=== PATIENT | female | born 1975 | race Caucasian/White ===

== ENCOUNTER 2017-10-21 13:57 | Emergency (ER) | payer MEDICAID ==
[~2017-10-21] VITALS: Ht 170.2 cm; Wt 170.1 kg
[2017-10-21 13:57] VITALS: BP_SYST 133
[~2017-10-21 13:57] MED LIST: SUMA25TA PO
[2017-10-21] MEDS ORDERED: ONDANSETRON 4 MG ODT TAB PO ONE (14:15)
[2017-10-21] MEDS ORDERED: fentaNYL CITRATE/PF 100 MCG/2 ML AMP IM ONE (14:15)
[2017-10-21] MEDS ORDERED: KETAMINE HCL 500 MG/10 ML VIAL IVP ONE (14:45)
[2017-10-21] MEDS ORDERED: KETAMINE HCL 50 MG/ML SYR ONE (14:56)
[2017-10-21 16:00] VITALS: BP_SYST 156
== END 2017-10-21 16:00 | disposition home or self-care (01) ==
LOC: SED 13:57
DX: M54.5 Low back pain (principal); J44.9 Chronic obstructive pulmonary disease, unspecified; I10 Essential (primary) hypertension; E66.9 Obesity, unspecified; Z68.43 Body mass index [BMI] 50.0-59.9, adult
CPT/HCPCS: 96372; 96374; 99284; J3010; Q0162

== ENCOUNTER 2018-01-29 09:07 | Emergency (ER) | payer MEDICAID ==
[~2018-01-29] VITALS: Ht 170.2 cm; Wt 171.0 kg
--- NOTE | 2018-01-29 09:10 | NUR ---
Patient to ER bed 6 to gown for evaluation. Side rails up. Report given to Teodoro JUAN.
--- NOTE | 2018-01-29 09:10 | NUR ---
Patient ambulatory to ED a/o x 4 with c/o lower back pain x 1 month. Worsening pain with muscle spasms occuring over last two weeks. No deformities. Reports injury back stepping down from ledge. CMS intact to lower extremities.
[2018-01-29 09:13] VITALS: BP_SYST 138
--- NOTE | 2018-01-29 09:19 | NUR ---
ED Dillan at bedside for medical evaluation.
[2018-01-29] MEDS ORDERED: KETOROLAC TROMETHAMINE 60 MG/2 ML VIAL IM ONE (09:30)
[2018-01-29 09:50] VITALS: BP_SYST 138
--- NOTE | 2018-01-29 09:50 | NUR ---
Patient given written and verbal discharge instructions and verbalizes understanding. ER MD discussed with patient the results and treatment provided. Patient in stable condition. ID arm band removed. Rx of Flexeril given. Patient educated on pain management and to follow up with PMD. Pain Scale 3/10. Opportunity for questions provided and answered. Medication side effect fact sheet provided.
== END 2018-01-29 09:50 | disposition home or self-care (01) ==
LOC: SED 09:07
DX: S39.012A Strain of muscle, fascia and tendon of lower back, initial encounter (principal); E66.01 Morbid (severe) obesity due to excess calories; J44.9 Chronic obstructive pulmonary disease, unspecified; I10 Essential (primary) hypertension; Z68.43 Body mass index [BMI] 50.0-59.9, adult; X50.9XXA Other and unspecified overexertion or strenuous movements or postures, initial encounter; Y93.89 Activity, other specified; Y92.89 Other specified places as the place of occurrence of the external cause; Y99.8 Other external cause status
CPT/HCPCS: 96372; 99283; J1885

== ENCOUNTER 2018-03-17 08:56 | Emergency (ER) | payer MEDICAID ==
[~2018-03-17] VITALS: Ht 170.2 cm; Wt 167.8 kg
[2018-03-17 09:09] VITALS: BP_SYST 163
--- NOTE | 2018-03-17 09:13 | NUR ---
Patient to ER bed 5 to gown for evaluation. Side rails up. Report given to Morgan JUAN.
--- NOTE | 2018-03-17 09:15 | NUR ---
Pt presents to ER c/o rash and itching around her eyes x 2-3 days. Pt reports using new make-up products and now has swelling and rash to her face and eyelids. Pt denies sob or chest pain, no signs of acute distress, speaking full sentences, ambulatory.
[2018-03-17] MEDS ORDERED: NACL 0.9% 1,000 ML IV ONE (09:17)
--- NOTE | 2018-03-17 09:20 | NUR ---
ER Dr. Ramesh at bedside examining patient.
[2018-03-17] MEDS ORDERED: FAMOTIDINE 20 MG TABLET PO ONE (09:30)
[2018-03-17] MEDS ORDERED: methylPREDNISolone SOD SUCC/PF 62.5 MG/ML VIAL IVP ONE (09:30)
[2018-03-17] MEDS ORDERED: IPRATROPIUM BROM 0.5 MG/2.5 ML VIAL.NEB (ATROVENT) IH ONE (09:30)
[2018-03-17] MEDS ORDERED: ALBUTEROL SULFATE 0.083% 2.5 MG/3 ML VIAL.NEB IH ONE (09:30)
[2018-03-17 09:52] LABS: BASOPHILS % (AUTO) 0.5 % (0.0-2.0); EOSINOPHILS # (AUTO) 0.1 K/uL (0.0-0.4); EOSINOPHILS % (AUTO) 1.4 % (0.0-4.0); HEMATOCRIT 42.9 % (36-48); HEMOGLOBIN 14.5 g/dL (12.0-16.0); LYMPHOCYTES # (AUTO) 1.8 K/uL (1.0-5.5); LYMPHOCYTES % (AUTO) 26.9 % (20.5-51.5); MEAN CORPUSCULAR HEMOGLOBIN 31 pg (27-31); MEAN CORPUSCULAR HGB CONC 34 % (32-36); MEAN CORPUSCULAR VOLUME 90 fL (79.0-98.0); MONOCYTES # (AUTO) 0.3 K/uL (0.0-1.0); MONOCYTES % (AUTO) 4.8 % (1.7-9.3); NEUTROPHILS # (AUTO) 4.4 K/uL (1.8-7.7); NEUTROPHILS % (AUTO) 66.4 % (40.0-70.0); PLATELET COUNT (AUTO) 295 K/uL (130-430); RED BLOOD CELL COUNT(AUTO) 4.76 MIL/uL (4.2-6.2); WHITE BLOOD COUNT (AUTO) 6.6 K/uL (4.8-10.8)
--- NOTE | 2018-03-17 10:00 | NUR ---
# 22 gauge angiocath placed to R SHOULDER. Use of asceptic technique. Opsite placed over site. Blood return noted. Flushed with 10 cc of normal saline. No evidence of infiltration noted. Patient tolerated well.
--- NOTE | 2018-03-17 10:00 | NUR ---
Pt medicated as ordered by ER Dr. Ramesh. Pt tolerated well; will continue to monitor.
[2018-03-17 10:10] LABS: CALCIUM 9.5 mg/dL (8.4-11.0); CREATININE 0.7 mg/dL (0.55-1.30); POTASSIUM 4.1 mmol/L (3.5-5.1)
[2018-03-17 10:14] LABS: ALBUMIN 3.5 g/dL (3.4-4.8); TOTAL BILIRUBIN 0.5 mg/dL (0.0-1.0)
--- NOTE | 2018-03-17 10:50 | NUR ---
Dr. Ramesh at bedside speaking with pt.
[2018-03-17 11:20] VITALS: BP_SYST 163
--- NOTE | 2018-03-17 11:20 | NUR ---
Patient given written and verbal discharge instructions and verbalizes understanding. ER MD discussed with patient the results and treatment provided. Patient in stable condition. ID arm band removed. IV catheter removed intact and dressing applied, no active bleeding. Rx of Atarax, Hydrocortisne, Prednisone given. Patient educated on pain management and to follow up with PMD. Pain Scale 0/10. Opportunity for questions provided and answered. Medication side effect fact sheet provided.
== END 2018-03-17 11:20 | disposition home or self-care (01) ==
LOC: SED 08:56
DX: L23.5 Allergic contact dermatitis due to other chemical products (principal); J44.9 Chronic obstructive pulmonary disease, unspecified; I10 Essential (primary) hypertension
CPT/HCPCS: 36415; 80053; 83690; 85025; 94640; 96361; 96374; 99283; J2930; J7030; J7613

== ENCOUNTER 2018-06-13 02:07 | Emergency (ER) | payer MEDICAID ==
[~2018-06-13] VITALS: Ht 172.7 cm; Wt 167.8 kg
[2018-06-13 02:10] VITALS: BP_SYST 148
--- NOTE | 2018-06-13 02:10 | NUR ---
Placed in room 01. Placed on panel monitor, blood pressure machine and pulse oximeter. To gown for exam. Side rails up. Report given to DRAKE Lopez.
--- NOTE | 2018-06-13 02:15 | NUR ---
Pt came to the ED for a productive cough and chest wall pain with coughing. Pt reports that she has been sick for a few days but has not taken any medication prior to coming to the ED. Denies n/v/d or fever. No other complaints/injuries at this time. Will cont. to monitor.
--- NOTE | 2018-06-13 02:37 | NUR ---
ER at bedside examining patient.
[2018-06-13] MEDS ORDERED: LevALBUTEROL HCL 1.25 MG/0.5 ML *CONC.* VIAL.NEB (XOPENEX CONC.) INH ONE (02:45)
--- NOTE | 2018-06-13 02:55 | NUR ---
RT at bedside for breathing treatment.
[2018-06-13] MEDS ORDERED: AMOXICILLIN 500 MG CAPSULE PO ONE (03:15)
[2018-06-13] MEDS ORDERED: PREDNISONE 20 MG TABLET PO ONE (03:15)
[2018-06-13 03:20] VITALS: BP_SYST 148
--- NOTE | 2018-06-13 03:20 | NUR ---
Patient given written and verbal discharge instructions and verbalizes understanding. ER MD Dr. Niño discussed with patient the results and treatment provided. Patient in stable condition. ID arm band removed. Rx of albuterol, amoxicillin and predisone given. Patient educated on pain management and to follow up with PMD. Pain Scale 0/10. Opportunity for questions provided and answered. Medication side effect fact sheet provided.
== END 2018-06-13 03:20 | disposition home or self-care (01) ==
LOC: SED 02:07
DX: J45.901 Unspecified asthma with (acute) exacerbation (principal); I10 Essential (primary) hypertension
CPT/HCPCS: 94640; 99283; J7512; J7612

== ENCOUNTER → 2018-06-14 | Emergency (ER) | payer MEDICAID ==
[~2018-06-14] VITALS: Ht 172.7 cm; Wt 121.6 kg
[~2018-06-14] MED LIST changes: +IPRATROPIUM/ALBUTEROL SULFATE 3 ML AMPUL.NEB (DUONEB) INH ONE; +IPRATROPIUM/ALBUTEROL SULFATE 3 ML AMPUL.NEB (DUONEB) ONE
[2018-06-14 17:32] VITALS: BP_SYST 163
--- NOTE | 2018-06-14 17:32 | NUR ---
Patient to ER triage for evaluation. Verbal order given for breathing tx.Pt receive tx in triage room
--- NOTE | 2018-06-14 18:15 | NUR ---
Pt advised to stay for further evaluation.Pt states" i feel better and i'll come back later".
== END | disposition still patient (30) ==
LOC: SED 17:25
DX: J45.901 Unspecified asthma with (acute) exacerbation (principal); I10 Essential (primary) hypertension; Z53.20 Procedure and treatment not carried out because of patient's decision for unspecified reasons
CPT/HCPCS: 94640; 99283; J7620

== ENCOUNTER 2018-10-17 16:32 | Emergency (ER) | payer MEDICAID ==
[~2018-10-17] VITALS: Ht 170.2 cm; Wt 172.4 kg
[~2018-10-17 16:32] MED LIST changes: -IPRATROPIUM/ALBUTEROL SULFATE 3 ML AMPUL.NEB (DUONEB) INH ONE; -IPRATROPIUM/ALBUTEROL SULFATE 3 ML AMPUL.NEB (DUONEB) ONE
[2018-10-17 16:57] VITALS: BP_SYST 156
--- NOTE | 2018-10-17 17:45 | NUR ---
PT CALLED THREE TIMES [facility]
== END 2018-10-17 17:45 | disposition left against medical advice (07) ==
LOC: SED 16:32
DX: T14.8XXA Other injury of unspecified body region, initial encounter (principal); Z53.21 Procedure and treatment not carried out due to patient leaving prior to being seen by health care provider

== ENCOUNTER 2019-10-01 17:01 | Emergency (ER) | payer MEDICAID ==
[~2019-10-01] VITALS: Ht 170.2 cm; Wt 154.2 kg
[2019-10-01 17:15] VITALS: BP_SYST 155
[2019-10-01 17:50] VITALS: BP_SYST 155
== END 2019-10-01 17:50 | disposition home or self-care (01) ==
LOC: SED 17:01
DX: N39.0 Urinary tract infection, site not specified (principal); J44.9 Chronic obstructive pulmonary disease, unspecified; I10 Essential (primary) hypertension; E07.9 Disorder of thyroid, unspecified
CPT/HCPCS: 81002; 99283

== ENCOUNTER 2019-10-03 18:44 | Emergency (ER) | payer MEDICAID ==
[~2019-10-03] VITALS: Ht 170.2 cm; Wt 161.5 kg
[2019-10-03 18:57] VITALS: BP_SYST 161
--- NOTE | 2019-10-03 23:10 | NUR ---
PT IN CHAIR. C/O RIGHT FLANK PAIN. NO DISTRESS NOTED.
[2019-10-03 23:41] LABS: BILIRUBIN,URINE NEGATIVE (NEGATIVE); CLARITY/URINE TURBID (CLEAR); COLOR,URINE YELLOW (YELLOW); GLUCOSE,URINE NEGATIVE (NEGATIVE); KETONES,URINE NEGATIVE (NEGATIVE); LEUKOCYTE ESTERASE ,URINE 2+ (NEGATIVE); NITRITE, URINE NEGATIVE (NEGATIVE); PH,URINE 6.5 (5.0-8.0); PROTEIN URINE NEGATIVE (NEGATIVE); UROBILINOGEN,URINE 0.2 (0.2-1.0)
--- NOTE | 2019-10-03 23:42 | NUR ---
ER Dr. CANELA at bedside examining patient.
[2019-10-03 23:43] LABS: BLOOD, URINE TRACE (NEGATIVE)
[2019-10-03 23:58] LABS: BACTERIA,URINE MODERATE /HPF (None Seen); WBC,URINE 20-50 /HPF (0-3)
--- NOTE | 2019-10-04 00:26 | NUR ---
BLADDER SCANNER DONE 385ML.
--- NOTE | 2019-10-04 00:41 | NUR ---
bladder scanner =93ml.
[2019-10-04 00:58] VITALS: BP_SYST 135
--- NOTE | 2019-10-04 00:58 | NUR ---
Patient given written and verbal discharge instructions and verbalizes understanding. ER MD discussed with patient the results and treatment provided. Patient in stable condition. ID arm band removed. No Rx given. Patient educated on pain management and to follow up with PMD. Pain Scale 0/10. Opportunity for questions provided and answered.
== END 2019-10-04 00:58 | disposition home or self-care (01) ==
LOC: SED 18:44
DX: R10.30 Lower abdominal pain, unspecified (principal); I10 Essential (primary) hypertension; J44.9 Chronic obstructive pulmonary disease, unspecified
CPT/HCPCS: 81000-TC; 87086; 99283

== ENCOUNTER 2021-07-18 03:24 | Emergency (ER) | payer MEDICAID ==
[2021-07-18 04:00] VITALS: BP_SYST 142
--- NOTE | 2021-07-18 04:05 | NUR ---
Pt brought self in to ED for L ear ache. States she saw her PCP on 07/10/21 and was prescribed Augmentin for ear infection. Completed atb therapy yesterday, however reports no relief and has been unable to see her pcp for f/u. Reports non radiating 6/10 pain. Arrived to ED in no acute distress. Breathing adequately on RA.
--- NOTE | 2021-07-18 04:30 | NUR ---
ER Dr. Ferrell at bedside examining patient.
[2021-07-18] MEDS ORDERED: CIPR7.5D OT ×5 (04:34→04:56)
--- NOTE | 2021-07-18 05:02 | NUR ---
Patient given written and verbal discharge instructions and verbalizes understanding. ER MD Ferrell discussed with patient the results and treatment provided. Patient in stable condition. ID arm band removed. Rx of Ciprodex Otic Suspension sent to pharmacy of choice. Patient educated on pain management and to follow up with PMD. Pain Scale 2/10. Opportunity for questions provided and answered. Medication side effect fact sheet provided.
[2021-07-18 05:03] VITALS: BP_SYST 149
== END 2021-07-18 05:02 | disposition home or self-care (01) ==
LOC: SED 03:24
DX: H60.92 Unspecified otitis externa, left ear (principal)
CPT/HCPCS: 99283

== ENCOUNTER 2021-07-29 00:05 | Emergency (ER) | payer MEDICAID ==
[~2021-07-29] VITALS: Ht 170.2 cm; Wt 163.3 kg
[~2021-07-29 00:05] MED LIST changes: +CIPR7.5D OT
[2021-07-29 01:44] LABS: HEMATOCRIT 38.8 % (36-48); HEMOGLOBIN 13.3 g/dL (12.0-16.0); PLATELET COUNT (AUTO) 203 K/uL (130-430)
[2021-07-29 01:47] LABS: CALCIUM 8.5 mg/dL (8.4-11.0); CREATININE 0.82 mg/dL (0.55-1.30); POTASSIUM 4.1 mmol/L (3.5-5.1)
[2021-07-29 01:51] LABS: BASOPHILS % (AUTO) 0.5 % (0.0-2.0); EOSINOPHILS % (AUTO) 0.5 % (0.0-4.0); LYMPHOCYTES # (AUTO) 0.6 K/uL (1.0-5.5); LYMPHOCYTES % (AUTO) 10.2 % (20.5-51.5); MEAN CORPUSCULAR HEMOGLOBIN 29 pg (27-31); MEAN CORPUSCULAR HGB CONC 34 % (32-36); MEAN CORPUSCULAR VOLUME 86 fL (79.0-98.0); MONOCYTES # (AUTO) 0.6 K/uL (0.0-1.0); MONOCYTES % (AUTO) 10.6 % (1.7-9.3); NEUTROPHILS # (AUTO) 4.4 K/uL (1.8-7.7); NEUTROPHILS % (AUTO) 78.2 % (40.0-70.0); RED BLOOD CELL COUNT(AUTO) 4.54 MIL/uL (4.2-6.2); RED CELL DISTRIBUTION WIDTH 13.6 % (9.0-15.0); WHITE BLOOD COUNT (AUTO) 5.6 K/uL (4.8-10.8)
[2021-07-29] MEDS ORDERED: NACL 0.9% 1,000 ML IV ONE (02:00)
[2021-07-29] MEDS ORDERED: ONDANSETRON HCL 4 MG/2 ML VIAL IVP ONE (02:00)
--- NOTE | 2021-07-29 02:00 | NUR ---
Patient to ER bed 2 to gown for evaluation. Side rails up. Report given to .
[2021-07-29 02:04] VITALS: BP_SYST 138
[2021-07-29 02:06] LABS: ALBUMIN 3.6 g/dL (3.4-4.8); TOTAL BILIRUBIN 0.6 mg/dL (0.0-1.0)
--- NOTE | 2021-07-29 02:16 | NUR ---
Vital Signs BP 138/82, HR 93, temperature 99.8 degrees F, O2 sat 96% on room air, respirations 18.
--- NOTE | 2021-07-29 02:20 | NUR ---
DR COLBERT AT BEDSIDE EXAMINING PATIENT
--- NOTE | 2021-07-29 02:23 | NUR ---
IV ACCES PLACED AT RT HAND G24 IV MEDS ZOFRAN AND IVF N/S 1L GIVEN BOLUS
[2021-07-29 02:40] LABS: BILIRUBIN,URINE NEGATIVE (NEGATIVE); BLOOD, URINE NEGATIVE (NEGATIVE); CLARITY/URINE CLEAR (CLEAR); COLOR,URINE YELLOW (YELLOW); GLUCOSE,URINE NEGATIVE (NEGATIVE); KETONES,URINE NEGATIVE (NEGATIVE); LEUKOCYTE ESTERASE ,URINE NEGATIVE (NEGATIVE); NITRITE, URINE NEGATIVE (NEGATIVE); PROTEIN URINE NEGATIVE (NEGATIVE); UROBILINOGEN,URINE 0.2 (0.2-1.0)
--- NOTE | 2021-07-29 04:00 | NUR ---
0400 HAD WATER ABLE DRINK IN NO NAUSEA SO FAR
[2021-07-29] MEDS ORDERED: PANTOPRAZOLE SODIUM 40 MG/VIAL (PROTONIX) ONE (04:53)
--- NOTE | 2021-07-29 04:53 | NUR ---
C/O N&V IV PROTONIX GIVEN SEE CPOE
[2021-07-29] MEDS ORDERED: PANTOPRAZOLE SODIUM 40 MG/VIAL (PROTONIX) IVP ONE (05:00)
[2021-07-29 05:43] VITALS: BP_SYST 138
--- NOTE | 2021-07-29 06:00 | NUR ---
LAB CALLED CRITICAL LAB PATIENT IS COVID POSITIVE, PATIENT MOVED TO ISOLATION ROOM BED-8
--- NOTE | 2021-07-29 06:00 | NUR ---
CRITICAL LAB: Ramandeep from Laboratory called with critical lab value - COVID positive. Patient name verified. Read back of values done. Dr. Calero notified of value. Patient moved to isolation room.
--- NOTE | 2021-07-29 06:30 | NUR ---
DR COLBERT W/ PATIENT AT BEDSIDE WITH DISPOSITION
[2021-07-29] MEDS ORDERED: NIRM1TAB PO (06:44)
[2021-07-29] MEDS ORDERED: ONDA-8 TL (06:44)
--- NOTE | 2021-07-29 06:57 | NUR ---
0650Patient given written and verbal discharge instructions and verbalizes understanding. GAYLA COLBERT MD discussed with patient the results and treatment provided. Patient in stable condition. ID arm band removed. Rx of MEDS given. Patient educated on pain management and to follow up with PMD. Pain Scale . Opportunity for questions provided and answered. Medication side effect fact sheet provided.
--- NOTE | 2021-08-03 17:50 | NUR ---
ADDEDUM: START NACL 0230 STOP 033
== END 2021-07-29 06:56 | disposition home or self-care (01) ==
LOC: SED 00:05
DX: U07.1 COVID-19 (principal); R11.10 Vomiting, unspecified; I10 Essential (primary) hypertension; J45.909 Unspecified asthma, uncomplicated
CPT/HCPCS: 36415; 71045; 80053; 81003; 83690; 84702; 85025; 87426; 87804 ×2; 96361; 96374; 96375; 99284; C9113; J2405; J7030

== ENCOUNTER 2021-08-24 19:19 | Emergency (ER) | payer MEDICAID ==
[~2021-08-24 19:19] MED LIST changes: +NIRM1TAB PO; +ONDA-8 TL
--- NOTE | 2021-08-24 19:55 | NUR ---
no answer for triage at this time
--- NOTE | 2021-08-24 20:24 | NUR ---
no answer x 2 for triage
--- NOTE | 2021-08-24 20:59 | NUR ---
pt did not answer for triage x 3 at this time
== END 2021-08-24 20:59 | disposition left against medical advice (07) ==
LOC: SED 19:19
DX: R42 Dizziness and giddiness (principal); Z53.21 Procedure and treatment not carried out due to patient leaving prior to being seen by health care provider

== ENCOUNTER 2021-08-25 11:56 | Emergency (ER) | payer MEDICAID ==
[~2021-08-25] VITALS: Ht 172.7 cm; Wt 163.3 kg
[2021-08-25 12:05] VITALS: BP_SYST 156
--- NOTE | 2021-08-25 12:05 | NUR ---
Pt triaged then placed in waiting room pending bed placement and EKG. [facility] per admitting. recep informed.
== END 2021-08-25 12:05 | disposition left against medical advice (07) ==
LOC: SED 11:56
DX: R07.9 Chest pain, unspecified (principal); R42 Dizziness and giddiness; Z53.21 Procedure and treatment not carried out due to patient leaving prior to being seen by health care provider

== ENCOUNTER 2022-04-04 10:57 | Emergency (ER) | payer MEDICAID ==
[~2022-04-04] VITALS: Ht 170.2 cm; Wt 165.6 kg
[2022-04-04 11:00] VITALS: BP_SYST 138
[2022-04-04 11:49] LABS: BASOPHILS % (AUTO) 0.5 % (0.0-2.0); EOSINOPHILS % (AUTO) 0.7 % (0.0-4.0); HEMATOCRIT 42.6 % (36-48); HEMOGLOBIN 14.3 g/dL (12.0-16.0); LYMPHOCYTES # (AUTO) 1.3 K/uL (1.0-5.5); LYMPHOCYTES % (AUTO) 20.8 % (20.5-51.5); MEAN CORPUSCULAR HEMOGLOBIN 30 pg (27-31); MEAN CORPUSCULAR HGB CONC 34 % (32-36); MEAN CORPUSCULAR VOLUME 90 fL (79.0-98.0); MONOCYTES # (AUTO) 0.4 K/uL (0.0-1.0); MONOCYTES % (AUTO) 6.1 % (1.7-9.3); NEUTROPHILS # (AUTO) 4.6 K/uL (1.8-7.7); NEUTROPHILS % (AUTO) 71.9 % (40.0-70.0); PLATELET COUNT (AUTO) 249 K/uL (130-430); RED BLOOD CELL COUNT(AUTO) 4.75 MIL/uL (4.2-6.2); RED CELL DISTRIBUTION WIDTH 13.8 % (9.0-15.0); WHITE BLOOD COUNT (AUTO) 6.4 K/uL (4.8-10.8)
[2022-04-04 11:55] LABS: ANION GAP 11 (5-15); CALCIUM 9.2 mg/dL (8.4-11.0); CHLORIDE 98 mmol/L (98-107); CREATININE 0.66 mg/dL (0.55-1.30); GLUCOSE 104 mg/dL (70-99); UREA NITROGEN, BLOOD 11 mg/dL (8-21)
[2022-04-04 12:01] LABS: ALANINE AMINOTRANSFERASE 32 U/L (12-78); ALBUMIN 3.9 g/dL (3.4-4.8); ASPARTATE AMINOTRANSFERASE 26 U/L (10-37); TOTAL BILIRUBIN 1.2 mg/dL (0.0-1.0)
[2022-04-04 12:04] LABS: GFR AFRICAN AMERICAN 125 mL/min (>90)
== END 2022-04-04 13:22 | disposition left against medical advice (07) ==
LOC: SED 10:57
DX: R07.9 Chest pain, unspecified (principal); J44.9 Chronic obstructive pulmonary disease, unspecified; I10 Essential (primary) hypertension; Z79.899 Other long term (current) drug therapy
CPT/HCPCS: 36415; 71045; 80053; 84484; 85025; 93005; 99285